=== PATIENT | male | born 1985 | race Caucasian/White ===

== ENCOUNTER 2017-10-30 07:39 | Inpatient (IN) | payer BC ==
[~2017-10-30] VITALS: Ht 175.3 cm; Wt 83.9 kg
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
--- NOTE | 2017-10-30 07:45 | NUR ---
DR. BRIONES AD BEDSIDE TO PLACE SUTURES TO LACERATION ON R WRIST GAUZE PRESSURE DRESSING APPLIED OVER LACERATION TO R WRIST
[2017-10-30] MEDS ORDERED: LIDOCAINE 2% 20 ML MDV ONE (07:47)
--- NOTE | 2017-10-30 07:55 | NUR ---
PAGED DR LAI VIA TXT BY RUSLAN FERNANDES
--- NOTE | 2017-10-30 07:56 | NUR ---
DR JOELLE BACON FOR DR BRIONES
[2017-10-30] MEDS ORDERED: TDAP [DIPH/PERTUSSIS/TET] 0.5 ML VIAL IM ONE ×2 (08:00→08:15)
[2017-10-30] MEDS ORDERED: LIDOCAINE 1% INJ 50 ML MDV IJ ONE (08:00)
--- NOTE | 2017-10-30 08:00 | NUR ---
DR BRIONES IS TALKING ON THE PHONE WITH DR LAI.
--- NOTE | 2017-10-30 08:01 | NUR ---
PAGED DR JOHN FOR DR BRIONES VIA SMS BY RUSLAN FERNANDES.
--- NOTE | 2017-10-30 08:03 | NUR ---
DR JOHN RELAY A MESSAGE THAT HE IS OUT OF TOWN.
--- NOTE | 2017-10-30 08:04 | NUR ---
PAGED DR CONTRERAS (VASCULAR SURGEON) AND IS NOW TALKING TO DR BRIONES ON THE PHONE.
[2017-10-30] MEDS ORDERED: CEFAZOLIN 1 GM in IV D5W 50 ML IV ONE (08:30)
--- NOTE | 2017-10-30 08:46 | NUR ---
REPORT GIVEN TO MEENA RN, OR NURSE FOR TRANSPORT TO PRE OP UNIT
--- NOTE | 2017-10-30 08:47 | NUR ---
PATIENT TRANSPORTED TO OR VIA GURNEY.
--- NOTE | 2017-10-30 08:48 | NUR ---
ARLEEN REARDON FOR ADMISSION
[2017-10-30] MEDS ORDERED: MIDAZOLAM HCL 2 MG/2ML VIAL ONE (08:55)
[2017-10-30] MEDS ORDERED: SUCCINYLCHOLINE CHLORIDE 20 MG/ML VIAL ONE (08:55)
[2017-10-30] MEDS ORDERED: ROCURONIUM BROMIDE 50 MG/5 ML ONE (08:55)
[2017-10-30] MEDS ORDERED: DESFLURANE 240 ML BOTTLE IH ONE (08:57)
[2017-10-30] MEDS ORDERED: CELLULOSE,OXIDIZED 1 EA PACK MC ONE (09:49)
[2017-10-30] MEDS ORDERED: PAPAVERINE HCL 30 MG/ML 10 MLVIAL IV ONE (10:00)
[2017-10-30] MEDS ORDERED: FAMOTIDINE/PF INJ 20 MG/2 ML VIAL IV ONE (10:11)
[2017-10-30] MEDS ORDERED: MAG HYDROX/AL HYDROX/SIMETH 30 ML UDC PO PRN (10:30)
[2017-10-30] MEDS ORDERED: MAGNESIUM HYDROXIDE 30 ML UDC PO PRN (10:30)
[2017-10-30] MEDS ORDERED: Z GUARD REMEDY 2 OZ OINT TP PRN (10:30)
[2017-10-30] MEDS ORDERED: ACETAMINOPHEN 325 MG TABLET PO PRN (10:30)
[2017-10-30] MEDS ORDERED: ONDANSETRON HCL/PF 4 MG/2 ML VIAL IVP PRN (10:30)
[2017-10-30] MEDS ORDERED: ZOLPIDEM TARTRATE 5 MG TABLET PO PRN (10:30)
[2017-10-30 10:31] LABS: CALCIUM, SERUM 8.8 mg/dL (8.5-10.1); CREATININE 1.5 mg/dL (0.6-1.3)
[2017-10-30 10:34] LABS: BASOPHILS % (AUTO) 0.7 % (0.0-2.0); EOSINOPHILS # (AUTO) 0.1 /CMM (0.0-0.7); EOSINOPHILS % (AUTO) 1.7 % (0.0-6.0); HEMATOCRIT 44 % (39-51); HEMOGLOBIN 15.3 g/dL (13.5-17.5); LYMPHOCYTES # (AUTO) 2.4 /CMM (0.8-4.8); LYMPHOCYTES % (AUTO) 41.8 % (20.0-44.0); MEAN CORPUSCULAR HEMOGLOBIN 30 PG (26.0-33.0); MEAN CORPUSCULAR HGB CONC 35 g/dl (31.0-36.0); MEAN CORPUSCULAR VOLUME 87 fL (80-96); MONOCYTES # (AUTO) 0.3 /CMM (0.1-1.30); MONOCYTES % (AUTO) 4.6 % (2.0-12.0); NEUTROPHILS # (AUTO) 2.9 /CMM (1.8-8.9); NEUTROPHILS % (AUTO) 51.2 % (43.0-81.0); PLATELET COUNT (AUTO) 319 /CMM (150-450); RDW COEFFICIENT OF VARIATION 12.4 (11.5-15.0); RED BLOOD CELL COUNT(AUTO) 5.07 MIL/uL (4.5-6.0); WHITE BLOOD COUNT (AUTO) 5.7 K/uL (4.3-11.0)
[2017-10-30] MEDS ORDERED: FENTANYL PF 100MCG/2ML AMPUL ONE (11:14)
[2017-10-30 11:40] LABS: BASOPHILS % (AUTO) 0.3 % (0.0-2.0); EOSINOPHILS % (AUTO) 0.2 % (0.0-6.0); HEMATOCRIT 39 % (39-51); HEMOGLOBIN 13.6 g/dL (13.5-17.5); LYMPHOCYTES # (AUTO) 1.1 /CMM (0.8-4.8); LYMPHOCYTES % (AUTO) 7.3 % (20.0-44.0); MEAN CORPUSCULAR HEMOGLOBIN 30 PG (26.0-33.0); MEAN CORPUSCULAR HGB CONC 35 g/dl (31.0-36.0); MEAN CORPUSCULAR VOLUME 88 fL (80-96); MONOCYTES # (AUTO) 0.2 /CMM (0.1-1.30); MONOCYTES % (AUTO) 1.2 % (2.0-12.0); NEUTROPHILS # (AUTO) 13.8 /CMM (1.8-8.9); PLATELET COUNT (AUTO) 287 /CMM (150-450); RDW COEFFICIENT OF VARIATION 12.2 (11.5-15.0); RED BLOOD CELL COUNT(AUTO) 4.49 MIL/uL (4.5-6.0); WHITE BLOOD COUNT (AUTO) 15.1 K/uL (4.3-11.0)
[2017-10-30 11:55] LABS: CALCIUM, SERUM 8.4 mg/dL (8.5-10.1); CREATININE 1.3 mg/dL (0.6-1.3); POTASSIUM 4.3 mmol/L (3.5-5.1)
[2017-10-30 12:00] VITALS: BP 134/75
[2017-10-30] MEDS ORDERED: MENTHOL/CETYLPYRD (CEPACOL) 1 LOZ LOZENGE MM PRN (12:00)
--- NOTE | 2017-10-30 12:00 | NUR ---
RN MS NOTES RECEIVED PT FROM O.R. STAFF, AWAKE, ALERT AND ORIENTED, ASSISTED TO BED, MADE COMFORTABLE, ROOM SET UP ORIENTATION PROVIDED TO PT, VERBALIZED UNDERSTANDING, S/P RIGHT ULNAR ARTERY REPAIR BY DR. CONTRERAS, PT WITH DRESSING TO RIGHT WRIST, WITH SLIGHT BLEEDING NOTED, ICE PACK PROVIDED, WITH COMPLAINT OF PAIN, PAIN MEDICATION GIVEN FOR PAIN MANAGEMENT, POST OP ORDERS NOTED AND CARRIED OUT, ADMITTING ORDERS RECEIVED FROM DR. REARDON, KEPT COMFORTABLE IN BED, FRIEND AT BEDSIDE, CALL LIGHT WITHIN REACH.
[2017-10-30] MEDS: FAMOTIDINE/PF INJ 20 MG/2 ML VIAL IV SCH (12:19)
[2017-10-30] MEDS: MORPHINE SULFATE INJ 4 MG/ML DISP.SYRIN IV PRN ×2 (12:19→19:25)
[2017-10-30] MEDS: HYDROCODONE/APAP 5/325MG 1 EACH TABLET PO PRN ×3 (12:56→20:59)
[2017-10-30 13:00] VITALS: BP 117/84
[2017-10-30 14:00] VITALS: BP 126/80
[2017-10-30] MEDS ORDERED: IV NS 0.9% 1,000 ML BAG IV PRN (14:30)
[2017-10-30 15:00] VITALS: BP 134/72
[2017-10-30] MEDS: IV NS 0.9% 1,000 ML IV PRN (15:19)
[2017-10-30 16:00] VITALS: BP 115/59
[2017-10-30] MEDS: ANCEF 1 GM/50 ML D5W IV SCH ×2 (16:44)
--- NOTE | 2017-10-30 18:43 | NUR ---
RN MS NOTES PT IN BED, AWAKE, ALERT AND ORIENTED, STILL WITH COMPLAINT OF SOME PAIN AT RIGHT WRIST, DOES NOT WANT TO TAKE PAIN MEDS FOR NOW, SPLINT PLACED UNDER RIGHT WRIST, PT SEEN BY CANDELARIO CARRERA, PLAN FOR RIGHT ULNAR NERVE SURGERY ON WEDNESDAY, PT INFORMED OF PLAN OF CARE, IV FLUIDS INFUSING WELL, CALL LIGHT WITHIN REACH, WILL CONTINUE TO MONITOR.
--- NOTE | 2017-10-30 19:05 | NUR ---
MS MERCER OPENING NOTES: RECEIVED PT AND IS IN SITTING UP IN BED. PT ON ROOM AIR AND TOLERATING WELL. PT A/OX4. PT HAS IV BEING INFUSED AT NS AT 90ML/HR. CALL LIGHT WITHIN PT'S REACH. BED KEPT IN LOW, LOCKED POSITION, AND SIDE RAILS X 2 UP. WILL CONTINUE TO MONITOR PT. Addendum: 10/31/17 at 0057 by MAXIMUS WITT RN SPLINT NOTED ON RIGHT ARM.
[2017-10-30 20:00] VITALS: BP 115/74
[2017-10-31] MEDS: FAMOTIDINE/PF INJ 20 MG/2 ML VIAL IV SCH ×2 (00:05→12:00)
[2017-10-31] MEDS: ANCEF 1 GM/50 ML D5W IV SCH ×4 (00:05→08:31)
[2017-10-31] MEDS: IV NS 0.9% 1,000 ML IV PRN ×2 (01:46→16:08)
[2017-10-31] MEDS: HYDROCODONE/APAP 5/325MG 1 EACH TABLET PO PRN ×3 (04:20→23:28)
--- NOTE | 2017-10-31 06:55 | NUR ---
MS RN CLOSING NOTES: ALL NEEDS WERE ATTENDED AND ANTICIPATED FOR. PT ASLEEP AT THIS TIME AND SLEEPING IN SEMI-FIGUEROA'S POSITION. PT ON ROOM AIR AND TOLERATING WELL. GIRLFRIEND AT BEDSIDE. PT A/OX4. PT HAS IV BEING INFUSED AT NS AT 90ML/HR. PT HAS URINAL PROVIDED AT BEDSIDE. OUTPUT WAS 900ML. CALL LIGHT WITHIN PT'S REACH. BED KEPT IN LOW, LOCKED POSITION, AND SIDE RAILS X 2 UP. WILL ENDORSE TO AM NURSE FOR PETE.
[2017-10-31 07:44] LABS: BASOPHILS % (AUTO) 0.1 % (0.0-2.0); EOSINOPHILS % (AUTO) 0.6 % (0.0-6.0); HEMATOCRIT 36 % (39-51); HEMOGLOBIN 12.6 g/dL (13.5-17.5); LYMPHOCYTES # (AUTO) 1.2 /CMM (0.8-4.8); LYMPHOCYTES % (AUTO) 15.4 % (20.0-44.0); MEAN CORPUSCULAR HEMOGLOBIN 30 PG (26.0-33.0); MEAN CORPUSCULAR HGB CONC 35 g/dl (31.0-36.0); MEAN CORPUSCULAR VOLUME 86 fL (80-96); MONOCYTES # (AUTO) 0.6 /CMM (0.1-1.30); MONOCYTES % (AUTO) 7.6 % (2.0-12.0); NEUTROPHILS # (AUTO) 6.1 /CMM (1.8-8.9); NEUTROPHILS % (AUTO) 76.3 % (43.0-81.0); PLATELET COUNT (AUTO) 264 /CMM (150-450); RDW COEFFICIENT OF VARIATION 11.4 (11.5-15.0); RED BLOOD CELL COUNT(AUTO) 4.16 MIL/uL (4.5-6.0); WHITE BLOOD COUNT (AUTO) 7.9 K/uL (4.3-11.0)
[2017-10-31 07:52] LABS: CALCIUM, SERUM 8.8 mg/dL (8.5-10.1); CREATININE 1.2 mg/dL (0.6-1.3); MAGNESIUM 1.9 mg/dL (1.8-2.4); PHOSPHORUS 3.6 mg/dL (2.5-4.9)
--- NOTE | 2017-10-31 07:52 | NUR ---
MS RN NOTES PATIENT IS UP SITTING IN THE BED, AWAKE. A/O 4. SATING 100% ON ROOM AIR, NO SOB. RFA IMMOBILIZER IN PLACE, DENIES PAIN. IVC IN LEFT AC G18 PATENT AND INTACT, IVF NS INFUSING AT 90ML/HR. CALL LIGHT WITHIN REACH. WILL CONT TO MONITOR.
[2017-10-31 08:00] VITALS: BP 105/55
[2017-10-31] MEDS: MULTIVITAMINS,THERAGRAN 1 UDTAB TABLET PO SCH (08:29)
[2017-10-31] MEDS: ENOXAPARIN SODIUM 40 MG/0.4 ML DISP.SYRIN SQ SCH (08:30)
[2017-10-31] MEDS: NEOMY SULF/BACITRAC ZN/POLY 15 GM TUBE TP SCH (08:32)
[2017-10-31] MEDS ORDERED: MAGNESIUM HYDROXIDE 30 ML UDC PO PRN (11:00)
--- NOTE | 2017-10-31 12:49 | NUR ---
PATIENT IS CURRENTLY ON REGULAR DIET, NO EPISODE OF VOMITING, NO C/O NAUSEA. ORDERS WRITTEN DC FAMOTIDINE UNTIL FULL LIQUID DIET TOLERATED, WILL DC PEPCID.
[2017-10-31 16:00] VITALS: BP 127/68
--- NOTE | 2017-10-31 18:25 | NUR ---
MS RN CLOSING NOTES PATIENT IN BED, A/O X4. IVF NS INFUSING AT 90ML/HR, TOLERATING WELL. RIGHT FOREARM IMMOBILIZER IN PLACE, DRESSING INTACT IN RIGHT POSTERIOR WRIST, NO BLEEDING NOTED. PAIN CONTROLLED. PATIENT WILL BE NPO MIDNIGHT, FOR RIGHT WRIST EXPLORATION BY DR. JOELLE FIGUEROA IN AM. PATIENT CONSENTED THE PROCEDURE. CONSENT FORM PLACE IN THE CHART. WILL ENDORSE TO FOREIGN LANGUAGE INSTRUCTOR RN FOR PETE.
--- NOTE | 2017-10-31 19:15 | NUR ---
MS RN OPENING NOTES: RECEIVED PT IN ROOM WITH 2 FAMILY MEMBERS AT BEDSIDE. PT NOT HOOKED TO IV AT THE MOMENT HE WANTS TO AMBULATE BEFORE HE GETS BACK TO BED. PT HAS IV ON L AC #18G AND IS PATENT AND INTACT. PT NOTIFIED THAT HE IS NPO POST MIDNIGHT HE HAS A PROCEDURE TOMORROW. PT A/OX4. PAIN MANAGED AT THIS TIME. CALL LIGHT WITHIN PT'S REACH. BED KEPT IN LOW, LOCKED POSITION, AND SIDE RAILS X 2UP. WILL CONTINUE TO MONITOR PT.
[2017-10-31 20:00] VITALS: BP 102/62
--- NOTE | 2017-10-31 21:16 | NUR ---
MS RN NOTES: SPOKE WITH ANESTHESIOLOGIST ASSISTANT ARIANNE MARTINEZ AND INFORMED HER PROCEDURE FOR PT IS AT 1300 IN THE AFTERNOON. KEEP NPO ORDERS IS. PT INFORMED WELL.
--- NOTE | 2017-10-31 23:35 | NUR ---
MS RN NOTES: PT COMPLAINING OF AB BEING SORE AND SHARP. PT ALSO COMPLAINING OF HAND PAIN /. PT WAS ADMINISTERED NORCO 5. WILL CONTINUE TO MONITOR PT.
[2017-11-01] MEDS: IV NS 0.9% 1,000 ML IV PRN ×2 (03:14→20:44)
--- NOTE | 2017-11-01 07:26 | NUR ---
MS RN CLOSING NOTES: ALL NEEDS WERE ATTENDED AND ANTICIPATED FOR. PT ASLEEP AT THIS TIME. PT HAS IV ON L AC #18G AND IS PATENT AND INTACT AND BEING INFUSED WITH NS AT 90ML/HR. PT NOTIFIED THAT HE IS NPO UNTIL HIS PROCEDURE TODAY AT 1300. PT A/OX4. PAIN MANAGED AT THIS TIME. CALL LIGHT WITHIN PT'S REACH. BED KEPT IN LOW, LOCKED POSITION, AND SIDE RAILS X 2UP. ENDORSED TO AM NURSE FOR PETE.
--- NOTE | 2017-11-01 07:41 | NUR ---
MS RN NOTES PATIENT IN BED, SLEEPING, AROUSES EASILY. PATIENT IS ON NPO STATUS, FOR SURGERY TODAY-RIGHT WRIST EXPLORATION. IVC IN LEFT AC G18 PATENT AND INTACT, IVF NS INFUSING AT 90ML/HR. RIGHT HAND IMMOBILIZER IN PLACE, RIGHT POSTERIOR WRIST DRESSING INTACT, NO BLEEDING NOTED. CALL LIGHT WITHIN REACH. WILL CONT TO MONITOR.
[2017-11-01 08:00] VITALS: BP 108/83
[2017-11-01] MEDS: MULTIVITAMINS,THERAGRAN 1 UDTAB TABLET PO SCH (08:38)
[2017-11-01] MEDS: NEOMY SULF/BACITRAC ZN/POLY 15 GM TUBE TP SCH (08:38)
[2017-11-01] MEDS: ENOXAPARIN SODIUM 40 MG/0.4 ML DISP.SYRIN SQ SCH (08:42)
[2017-11-01] MEDS ORDERED: ANESTHESIA TRAY IN PYXIS 1 EA TRAY MC ONE (09:22)
[2017-11-01] MEDS ORDERED: BUPIVACAINE 0.5 % PF 150 MG/30 ML VIAL ONE (09:22)
[2017-11-01] MEDS ORDERED: LIDOCAINE 1%-EPI 1:100,000 50 ML VIAL IJ ONE (09:30)
--- NOTE | 2017-11-01 09:39 | NUR ---
PATIENT REPORTED ABDOMINAL PAIN WHEN HE MOVES AND BREATH IN SOME AIR. ABDOMEN SOFT AND NON DISTENDED. ABDOMINAL SOUNDS PRESENT IN ALL 4 Q. PATIENT HAD BOWEL MOVEMENT YESTERDAY. NO C/O NAUSEA, NO EPISODE OF VOMITING. PATIENT IS SEEN BY DR. REARDON, SPOKE TO THE PATIENT WITH NO NEW ORDERS AT THIS TIME.
[2017-11-01] MEDS ORDERED: HYDR-552 PO (11:03)
[2017-11-01] MEDS ORDERED: SULF1TAB48 PO (11:03)
[2017-11-01] MEDS ORDERED: TRAM50TA2 PO (11:03)
[2017-11-01] MEDS ORDERED: HYDROMORPHONE INJ 2 MG/ML DISP.SYRIN ONE (11:54)
[2017-11-01] MEDS ORDERED: MIDAZOLAM HCL 2 MG/2ML VIAL ONE (11:55)
[2017-11-01] MEDS ORDERED: ROCURONIUM BROMIDE 50 MG/5 ML ONE ×2 (11:55→13:55)
--- NOTE | 2017-11-01 12:34 | NUR ---
PATIENT IS TAKEN TO THE OR FOR SURGERY-RIGHT WRIST EXPLORATION BY DR. JOELLE FIGUEROA.
[2017-11-01] MEDS: MORPHINE SULFATE INJ 4 MG/ML DISP.SYRIN IV PRN ×2 (16:53→20:44)
--- NOTE | 2017-11-01 16:56 | NUR ---
PATIENT IS BACK FROM SURGERY S/P RIGHT WRIST EXPLORATION REPAIR ARTERY/NERVE BY DR. LAI. PATIENT IS AWAKE, A/O X4. VS TAKEN AND RECORDED, RIGHT ARM DRESSING IN PLACE, ABLE TO MOVE RIGHT FINGERS, LIMITED MOVEMENT IN RIGHT ARM DUE TO PAIN, MEDICATED WITH MORPHINE 2MG IVP PRN. MADE COMFORTABLE IN BED, WARM BLANKET PROVIDED. RESUME DIET ORDERED, PATIENT PREFERS TO STAY IN THE HOSP AND LEAVE TOMORROW MORNING FOR DC. PATIENT RECEIVED IV ANCEF X1 IN THE OR PER REPORT. CHARGE NURSE IS AWARE. PATIENT TO START ANTIBIOTIC ORAL TOMORROW AT HOME. PRESCRIPTION IN THE CHART. WILL CONT TO MONITOR CLOSELY.
[2017-11-01 17:00] VITALS: BP 127/69
[2017-11-01] MEDS: HYDROCODONE/APAP 5/325MG 1 EACH TABLET PO PRN ×2 (17:54→22:56)
--- NOTE | 2017-11-01 18:31 | NUR ---
MS RN CLOSING NOTES PATIENT IN BED, A/O X4. S/P RIGHT WRIST EXPLORATION ARTERY/NERVE REPAIR TODAY BY DR. LAI. RIGHT FOREARM DRESSING INTACT, NO BLEEDING NOTED. VS STABLE, PATIENT VERBALIZED APPROPRIATE PAIN SCALE USE. PRN PAIN MEDICATION GIVEN. PATIENT TO BE DISCHARGED HOME. DR. REARDON INFORMED. WILL ENDORSE TO WHEELCHAIR DRIVER RN FOR PETE.
--- NOTE | 2017-11-01 19:30 | NUR ---
MS RN OPENING NOTES: RECEIVED PT IN BED WITH 2 FAMILY MEMBERS AT BEDSIDE. PT HAS L AC #18G AND IS BEING INFUSED WITH NS AT 75ML/HR. PT A/OX4. PT IS S/P TENDON/NERVE REPAIR TODAY BY DR. LAI. DRESSING/BANDAGE ON RIGHT ARM IN PLACE. URINAL AND CALL LIGHT WITHIN REACH. BED KEPT IN LOW, LOCKED POSITION, AND SIDE RAILS X 2UP. WILL CONTINUE TO MONITOR PT.
[2017-11-01 20:00] VITALS: BP 117/58
[2017-11-02] MEDS: HYDROCODONE/APAP 5/325MG 1 EACH TABLET PO PRN (04:02)
--- NOTE | 2017-11-02 07:00 | NUR ---
MS RN CLOSING NOTES: ALL NEEDS WERE ATTENDED AND ANTICIPATED FOR. PT HAS L AC #18G AND IS BEING INFUSED WITH NS AT 75ML/HR. PT A/OX4. DRESSING/BANDAGE ON RIGHT ARM IN PLACE. URINAL AND CALL LIGHT WITHIN REACH. BED KEPT IN LOW, LOCKED POSITION, AND SIDE RAILS X 2UP. ENDORSED TO AM NURSE FOR PETE.
--- NOTE | 2017-11-02 07:34 | NUR ---
MS RN NOTES PATIENT IN BED, AWAKE. A/O X4. RIGHT FOREARM DRESSING INTACT, NO BLEEDING. AMBULATORY, ASSISTED WITH AM CARE. IVC IN LEFT AC G18 PATENT AND INTACT, FLUSHES WELL. PATIENT TO BE DISCHARGED HOME TODAY. WILL CONT TO MONITOR.
[2017-11-02 08:00] VITALS: BP 147/95
[2017-11-02] MEDS: MULTIVITAMINS,THERAGRAN 1 UDTAB TABLET PO SCH (08:55)
[2017-11-02] MEDS: ENOXAPARIN SODIUM 40 MG/0.4 ML DISP.SYRIN SQ SCH (08:56)
[2017-11-02] MEDS: NEOMY SULF/BACITRAC ZN/POLY 15 GM TUBE TP SCH (08:59)
--- NOTE | 2017-11-02 08:59 | NUR ---
NEOSPORIN OINT NON ADMINISTERED. RFA DRESSING IN PLACE, DRESSING EXTENDING TO RIGHT HANDS/FINGERS.
--- NOTE | 2017-11-02 10:18 | NUR ---
MS RN DISCHARGED PATIENT HAS BEEN CLEARED FOR DC HOME BY . VS REMAINS STABLE. PATIENT IS AMBULATORY, RFA DRESSING EXTENDING TO RIGHT HAND/FINGERS INTACT, ABLE TO MOVE TIP OF THE FINGERS WITHOUT DIFFICULTY. IVC IN LEFT AC REMOVED, GAUZE APPLIED. NO BLEEDING NOTED. DISCHARGE INSTRUCTION GIVEN TO THE PATIENT, VERBALIZED UNDERSTANDING. BELONGINGS CHECK AND PRESCRIPTION GIVEN TO THE UPON DC. PATIENT LEFT HOSP IN STABLE CONDITION VIA PRIVATE CAR ACCOMPANIED BY FAMILY.
== END 2017-11-02 10:00 | disposition home or self-care (01) | DRG 906 ==
LOC: ER 07:40 → MED 09:09
PROVIDERS: ADMIT Internal Medicine; ATTEND Internal Medicine
PROC: 03Q90ZZ Repair Right Ulnar Artery, Open Approach (ICD-10-PCS; principal; 2017-10-30 08:30)
PROC: 0XQG0ZZ Repair Right Wrist Region, Open Approach (ICD-10-PCS; principal; 2017-10-30 08:30)
PROC: 0KQC0ZZ Repair Right Hand Muscle, Open Approach (ICD-10-PCS; 2017-11-01)
PROC: 0LQ70ZZ Repair Right Hand Tendon, Open Approach (ICD-10-PCS; 2017-11-01)
PROC: 03Q90ZZ Repair Right Ulnar Artery, Open Approach (ICD-10-PCS; 2017-11-01)
PROC: 01Q40ZZ Repair Ulnar Nerve, Open Approach (ICD-10-PCS; 2017-11-01)
PROC: 0XQG0ZZ Repair Right Wrist Region, Open Approach (ICD-10-PCS; 2017-11-01)
DX: S65.011A Laceration of ulnar artery at wrist and hand level of right arm, initial encounter (principal); F10.129 Alcohol abuse with intoxication, unspecified; S66.126A Laceration of flexor muscle, fascia and tendon of right little finger at wrist and hand level, initial encounter; S62.336A Displaced fracture of neck of fifth metacarpal bone, right hand, initial encounter for closed fracture; S64.01XA Injury of ulnar nerve at wrist and hand level of right arm, initial encounter; X58.XXXA Exposure to other specified factors, initial encounter; Y92.009 Unspecified place in unspecified non-institutional (private) residence as the place of occurrence of the external cause; Y93.89 Activity, other specified; F14.90 Cocaine use, unspecified, uncomplicated; S61.511A Laceration without foreign body of right wrist, initial encounter; X83.8XXA Intentional self-harm by other specified means, initial encounter
CPT/HCPCS: 36415; 73110; 80048-TC; 83735-TC; 84100-TC; 85025-TC; 86850-TC; 87081-TC; 90715; A4606; A6402; J0330; J0690; J1100; J1170; J1644; J1650; J2250; J2270; J2405; J2440; J2704; J2710; J3010; J3490; J7030; J7060; Z7610